=== PATIENT | female | born 1995 | race Caucasian/White ===

== ENCOUNTER 2018-01-21 19:25 | Emergency (ER) | payer BC ==
[~2018-01-21] VITALS: Ht 157.5 cm; Wt 54.4 kg
[~2018-01-21 19:25] MED LIST: AYGESTIN 5 MG TA5 M1 PO; CLEOCIN HCL150 MG PO; DIFLUCAN150 MG PO; LEVORA-281 EACH PO; MONISTAT 745 GM VG; NOHOMEMEDICATIONS; PERCOCET 5-3251 EACH PO; PHENERGAN 25 MG25 M1 PO; ZOFRAN ODT4 MG PO
[2018-01-21] MEDS ORDERED: PERCOCET PO (19:43)
[2018-01-21 20:04] LABS: ABSOLUTE LYMPHOCYTES 0.9 thou/uL (0.8-5.3); ABSOLUTE MONOCYTES 0.7 thou/uL (0.0-1.2); ABSOLUTE NEUTROPHILS 6.7 thou/uL (1.6-8.1); BASOPHILS 0.3 %; EOSINOPHILS 0.5 %; HEMATOCRIT 37.4 % (37.0-47.0); MCH 30.3 pg (26.0-34.0); MCHC 34.6 g/dL (28.0-37.0); MCV 87.6 fL (80.0-100.0); MONOCYTES 8.8 %; MPV 8.4 fl. (7.2-11.1); NUCLEATED RBCS 0 /100WBC; PLATELET COUNT* 224 thou/uL (150-400); POLYS 79.4 %; RBC 4.27 mil/uL (4.20-5.00); RDW-CV 12.7 % (10.5-14.5); WBC 8.4 thou/uL (4.0-11.0)
[2018-01-21 20:13] LABS: CALCIUM 8.8 mg/dL (8.5-10.1); CREATININE 0.5 mg/dL (0.6-1.3); POTASSIUM 3.8 mmol/L (3.5-5.1)
[2018-01-21 20:23] LABS: ALBUMIN 3.6 g/dL (3.4-5.0); TOTAL BILIRUBIN 0.7 mg/dL (<0.1-1.0); TOTAL PROTEIN 7.4 g/dL (6.4-8.2)
[2018-01-21 20:29] LABS: URINE BILIRUBIN NEGATIVE (Negative); URINE BLOOD NEGATIVE (Negative); URINE CLARITY CLEAR; URINE COLOR YELLOW; URINE GLUCOSE-RANDOM NEGATIVE (Negative); URINE LEUKOCYTES NEGATIVE (Negative); URINE NITRITE NEGATIVE (Negative); URINE PROTEIN NEGATIVE (Negative); URINE SPECIFIC GRAVITY 1.015 (1.005-1.030); URINE UROBILINOGEN 0.2 E.U./dl (0.2-1.0)
[2018-01-21 20:36] LABS: URINE KETONES 3+ (Negative); URINE REDUCING SUBSTANCE NEGATIVE (Negative)
[2018-01-21] MEDS ORDERED: SENOKOT8.6 MG PO (21:20)
[2018-01-21] MEDS ORDERED: MILK OF MA2400 MG/10 PO (21:20)
[2018-01-21] MEDS ORDERED: PRILOSEC 20 MG20 MG PO (21:20)
[2018-01-21] MEDS ORDERED: CARAFATE 1 GM TA1 G1 PO (21:20)
[2018-01-21 21:36] VITALS: BP 105/51
== END 2018-01-21 21:38 | disposition home or self-care (01) ==
LOC: M.ERS 19:25
PROVIDERS: Physician Assistant
DX: R11.2 Nausea with vomiting, unspecified (principal); K59.00 Constipation, unspecified; R10.13 Epigastric pain; J45.909 Unspecified asthma, uncomplicated; Z88.0 Allergy status to penicillin; F32.9 Major depressive disorder, single episode, unspecified

== ENCOUNTER 2018-09-26 14:59 | Emergency (ER) | payer BC ==
[~2018-09-26] VITALS: Ht 157.5 cm; Wt 69.4 kg
[~2018-09-26 14:59] MED LIST changes: +CARAFATE 1 GM TA1 G1 PO; +MILK OF MA2400 MG/10 PO; +PERCOCET PO; +PRILOSEC 20 MG20 MG PO; +SENOKOT8.6 MG PO
[2018-09-26] MEDS ORDERED: PRENATAL PO (15:15)
[2018-09-26 15:47] LABS: HEMATOCRIT 39.4 % (37.0-47.0); HEMOGLOBIN 13.8 gm/dL (12.0-15.0); MCHC 34.9 g/dL (28.0-37.0); MCV 88.9 fL (80.0-100.0); MPV 8.2 fl. (7.2-11.1); NUCLEATED RBCS 0 /100WBC; PLATELET COUNT* 224 thou/uL (150-400); RBC 4.43 mil/uL (4.20-5.00); RDW-CV 13.2 % (10.5-14.5)
[2018-09-26 15:53] LABS: CALCIUM 8.6 mg/dL (8.5-10.1); CREATININE 0.5 mg/dL (0.6-1.3); POTASSIUM 3.4 mmol/L (3.5-5.1)
[2018-09-26 15:57] LABS: TOTAL PROTEIN 7.2 g/dL (6.4-8.2)
[2018-09-26 16:14] LABS: ABSOLUTE LYMPHOCYTES 0.6 thou/uL (0.8-5.3); ABSOLUTE MONOCYTES 0.6 thou/uL (0.0-1.2); ABSOLUTE NEUTROPHILS 5.7 thou/uL (1.6-8.1); PLATELET ESTIMATE ADEQUATE
[2018-09-26] MEDS ORDERED: BENTYL 20 MG TA20 M1 PO (16:28)
[2018-09-26] MEDS ORDERED: ZOFRAN4 MG PO (16:28)
[2018-09-26] MEDS ORDERED: PEPCID20 MG PO (16:28)
[2018-09-26 16:37] VITALS: BP 119/56
== END 2018-09-26 16:38 | disposition home or self-care (01) ==
LOC: M.ERS 14:59
PROVIDERS: Nurse Practitioner Family
DX: O26.892 Other specified pregnancy related conditions, second trimester (principal); R10.13 Epigastric pain; O21.8 Other vomiting complicating pregnancy; O99.112 Other diseases of the blood and blood-forming organs and certain disorders involving the immune mechanism complicating pregnancy, second trimester; O99.342 Other mental disorders complicating pregnancy, second trimester; Z88.0 Allergy status to penicillin; Z3A.17 17 weeks gestation of pregnancy

== ENCOUNTER 2018-11-16 00:07 | Emergency (ER) | payer BC ==
[~2018-11-16] VITALS: Ht 157.5 cm; Wt 70.3 kg
[~2018-11-16 00:07] MED LIST changes: +BENTYL 20 MG TA20 M1 PO; +PEPCID20 MG PO; +PRENATAL PO; +ZOFRAN4 MG PO
[2018-11-16 00:29] LABS: URINE BILIRUBIN NEGATIVE (Negative); URINE BLOOD NEGATIVE (Negative); URINE CLARITY CLEAR; URINE COLOR YELLOW; URINE GLUCOSE-RANDOM NEGATIVE (Negative); URINE KETONES NEGATIVE (Negative); URINE LEUKOCYTES-REFLEX NEGATIVE (Negative); URINE NITRITE-REFLEX NEGATIVE (Negative); URINE PROTEIN NEGATIVE (Negative); URINE SPECIFIC GRAVITY 1.025 (1.005-1.030); URINE UROBILINOGEN 0.2 E.U./dl (0.2-1.0)
[2018-11-16] MEDS ORDERED: ASPIR 8181 MG PO (00:29)
[2018-11-16 00:48] LABS: ABSOLUTE EOSINOPHILS 0.2 thou/uL (0.0-0.7); ABSOLUTE LYMPHOCYTES 2.1 thou/uL (0.8-5.3); ABSOLUTE MONOCYTES 0.8 thou/uL (0.0-1.2); ABSOLUTE NEUTROPHILS 5.1 thou/uL (1.6-8.1); BASOPHILS 0.5 %; EOSINOPHILS 2.1 %; HEMATOCRIT 37.7 % (37.0-47.0); LYMPHOCYTES 25.8 %; MCH 31.5 pg (26.0-34.0); MCHC 34.5 g/dL (28.0-37.0); MCV 91.2 fL (80.0-100.0); MONOCYTES 9.8 %; MPV 8.6 fl. (7.2-11.1); NUCLEATED RBCS 0 /100WBC; PLATELET COUNT* 258 thou/uL (150-400); POLYS 61.8 %; RBC 4.13 mil/uL (4.20-5.00); RDW-CV 13.2 % (10.5-14.5); WBC 8.3 thou/uL (4.0-11.0)
[2018-11-16 00:57] LABS: CALCIUM 8.8 mg/dL (8.5-10.1); CREATININE 0.5 mg/dL (0.6-1.3); POTASSIUM 3.5 mmol/L (3.5-5.1)
[2018-11-16 01:01] LABS: ALBUMIN 2.9 g/dL (3.4-5.0); TOTAL BILIRUBIN 0.2 mg/dL (<0.1-1.0); TOTAL PROTEIN 7.6 g/dL (6.4-8.2)
[2018-11-16 02:46] VITALS: BP 102/59
== END 2018-11-16 02:46 | disposition still patient (30) ==
LOC: M.ERS 00:07
PROVIDERS: Emergency Medicine Emergency Medical Services
DX: O26.892 Other specified pregnancy related conditions, second trimester (principal); R10.30 Lower abdominal pain, unspecified; F32.9 Major depressive disorder, single episode, unspecified; Z88.0 Allergy status to penicillin; Z86.2 Personal history of diseases of the blood and blood-forming organs and certain disorders involving the immune mechanism; Z3A.24 24 weeks gestation of pregnancy

== ENCOUNTER 2019-10-11 21:00 | Emergency (ER) | payer OTHER ==
[~2019-10-11] VITALS: Ht 154.9 cm; Wt 68.0 kg
[~2019-10-11 21:00] MED LIST changes: +ASPIR 8181 MG PO
[2019-10-11 21:13] VITALS: BP 156/82
[2019-10-11 21:35] LABS: INFLUENZA A ANTIGEN Negative (Negative); INFLUENZA B ANTIGEN Negative (Negative)
[2019-10-11] MEDS ORDERED: ZPAK PO (21:40)
[2019-10-11] MEDS ORDERED: PREDNISONE 20 M20 M1 PO (21:40)
== END 2019-10-11 21:59 | disposition home or self-care (01) ==
LOC: M.ERS 21:00
PROVIDERS: Family Medicine
DX: J40 Bronchitis, not specified as acute or chronic (principal); J02.9 Acute pharyngitis, unspecified; F32.9 Major depressive disorder, single episode, unspecified; D64.9 Anemia, unspecified; Z79.82 Long term (current) use of aspirin; Z88.0 Allergy status to penicillin